=== PATIENT | female | born 1950 | race Caucasian/White ===

== ENCOUNTER 2024-10-19 13:36 | Outpatient (CLI) | payer MEDICARE, SELFPAY ==
--- NOTE | ~2024-10-19 | MR_ITS ---
MRI of the brain Clinical History: Bilateral hearing loss Technique: Axial and sagittal T1-weighted images were acquired. These were followed by axial T2-weigh cesar, diffusion weighted, gradient, and FLAIR images. Thin cut coronal and axial T1-weighted imaging w as performed through the internal auditory canals. Following intravenous administration of 17 cc Mult iHance gadolinium, T1-weighted fat-sat imaging was performed through the brain in the axial and coron al planes. Thin cut T1-weighted postcontrast imaging was performed through the internal auditory nancy ls in the axial and coronal planes. Findings: There is no acute infarct, internal hemorrhage or mass lesion. There is moderate chronic mi crovascular ischemic change throughout the periventricular white matter bilaterally. Ventricles and subarachnoid spaces are unremarkable. Orbits are unremarkable. Paranasal sinuses and m astoid air cells are clear. Major intracranial flow voids are intact. Sagittal midline structures are intact. No mass lesion seen at the internal auditory canals or CP angle regions. No abnormal postcontrast enhancement identified. IMPRESSION: No acute infarct, intracranial hemorrhage, or mass lesion. Moderate chronic microvascular ischemic change in the periventricular white matter bilaterally. Reviewed, dictated and finalized at location . IMPRESSION: No acute infarct, intracranial hemorrhage, or mass lesion. Moderate chronic microvascular ischemic change in the periventricular white mat ter bilaterally.
== END 2024-10-19 13:37 | disposition home or self-care (01) ==
PROVIDERS: PCP Internal Medicine; Visit Provider Nurse Practitioner Family
DX: I67.82 Cerebral ischemia (principal); H91.93 Unspecified hearing loss, bilateral
CPT/HCPCS: 70553; A9577

== ENCOUNTER 2024-12-12 01:27 | Day surgery (SDC) | payer MEDICARE, SELFPAY ==
--- NOTE | 2024-12-05 14:43 | PC.NURSE ---
Report to the Outpatient Waiting Room, entrance under the green pavilion located off [facility], at time __9 AM on date _12/12/24 . Planned Procedure Time: _11 AM .? Time changes happen often and if your time is changed the preop area will call you the afternoon before. - You and your visitor will be asked to self-screen and do not enter if you have any COVID symptoms. Please call surgeon if you need to reschedule. - A mask is optional within the hospital at this time. Patients may have clear liquids (water, carbonated beverages, clear teas, apple juice) until 3 hours prior to surgery( 8AM) with a maximum of 20 ounces. - No food from midnight until time of surgery and no smoking, or chewing tobacco (or any form of nicotine). No chewing gum, candy or mints. - Take only the following medications with a SIP of water on the morning of surgery: __LEVOTHYROXINE,EYE DROPS DO NOT STOP ANY OF YOUR OTHER PRESCRIPTION MEDICATIONS PRIOR TO SURGERY EXCEPT THE FOLLOWING Hold all vitamins and supplements for 3 days per anesthesiologist.LAST DOSE 12/08/24 Medications to discontinue per physician ___ASPIRIN AND MELOXICAM PER DR TUCKER Please no make-up, nail croatian, hairspray, perfume, deodorant, or body powder the day of surgery.? No jewelry (including any body piercings) or valuables the day of surgery, leave them at home.? Please take a shower or bath the night before, or the morning of, surgery with an antibacterial soap.? Wear comfortable, loose fitting clothing.? Children are encouraged to wear pajamas. - Jewelry must be removed prior to entering the operating room.? Rings and piercings that are not removed may be cut off. - The hospital will not accept responsibility for valuables.? - Please leave all valuables, including medications, at home the day of surgery. If you are going home after surgery, a licensed cpr ambulance driver must drive you home.? - NO public transportation without another adult if you receive anesthesia. - We recommend that an adult stay with you for 24 hours following discharge. - We also recommend that you do not drive, make important decision, drink alcoholic beverages, or take any drugs that were not prescribed by your health care provider for at least 24 hours after your discharge time. For Pediatric surgeries, we recommend two adults accompany the child home. Follow any additional instructions given to you from your surgeon. Telephone instructions given to _PATIENT and asked if any additional questions and then verbalized understanding. Patient advised to call surgeon office or pre surgery nurse liaison [phone] if any additional questions.
[2024-12-05 15:02] VITALS: BMI 29.7
[2024-12-12 10:05] VITALS: BP 137/71; PULSE 72; RESP 16; TEMP 36.2; O2SAT 98
[2024-12-12] MEDS: ACETAMINOPHEN 500 MG TABLET 1000 MG PO (10:05)
--- NOTE | 2024-12-12 10:14 | WPDANESEPPF ---
Anes - Initial Pre Proc Eval Procedure: Operation Date: 12/12/24 11:00 Proposed Procedures p Hysteroscopy, Dilation and Curettage - Tomas Armstrong MD Date/Time: 12/12/24 10:14 Surgeon: Tomas Armstrong MD Pre Op Diagnosis: lesion of endometrium Patient Data Age: 74 Gender: F Height: 1.7 m Weight: 86.2 kg Allergies Allergy/AdvReac Type Severity Reaction Status Date / Time atenolol Allergy Severe THROAT Verified 12/05/24 14:43 SWELLING/SOB amitriptyline Allergy Intermediate HYPER Verified 12/05/24 14:43 levofloxacin Allergy Intermediate SOB-THROAT Verified 12/05/24 14:43 SWELLS Home Medications ?Medication ?Instructions ?Recorded ?Confirmed ?Type apixaban 2.5 mg tablet (Eliquis) 2.5 mg PO BID 05/04/24 12/05/24 History ascorbate calcium (vitamin C) 500 500 mg PO DAILY 05/04/24 12/05/24 History mg tablet atorvastatin 10 mg tablet (Lipitor) 10 mg PO DAILY 05/04/24 12/05/24 History calcium 600 mg (as carbonate)-vit 1 tablet PO DAILY 05/04/24 12/05/24 History D3 1,000 unit-vitamin K2 90 mcg tab cholecalciferol (vitamin D3) 25 25 mcg PO DAILY 05/04/24 12/05/24 History mcg (1,000 unit) capsule fexofenadine 60 mg tablet (Faye 60 mg PO Q24H 05/04/24 12/05/24 History Allergy) fluticasone propionate 50 1 inh inhalation Q12H 05/04/24 12/05/24 History mcg/actuation blister powder for inhalation levothyroxine 50 mcg capsule 50 mcg PO DAILY 05/04/24 12/05/24 History meloxicam 7.5 mg tablet 7.5 mg PO DAILY PRN pain 05/04/24 12/05/24 History olopatadine 0.2 % eye drops 1 drp EACH EYE BID 05/04/24 12/05/24 History omega-3 fatty acids 1,000 mg 1,000 mg PO DAILY 05/04/24 12/05/24 History capsule ([place]-3) vitamin E succinate 67 mg (100 67 mg PO DAILY 05/04/24 12/05/24 History unit) tablet aspirin 81 mg capsule 81 mg PO HS 12/05/24 12/05/24 History peg 400-propylene glycol (PF) 0.4 1 drp EACH EYE DAILY PRN dry eye(s) 12/05/24 12/05/24 History %-0.3 % eye drops in a dropperette (Systane Ultra (PF)) Patient hx anesthesia problems: none Family hx anesthesia problems: none Results Review: All pre-operative results and documents have been reviewed as part of the pre-operative evaluation. PMFSH Past Medical History Medical History (Updated 12/11/24 @ 13:56 by Edilberto Little DO) Hypothyroidism Asthma Surgical History Surgical History (Updated 05/05/24 @ 10:24 by Amaury Phillips MD) History of surgical amputation of finger History of cholecystectomy History of ear surgery History of knee surgery LT Family History Family History (Updated 05/04/24 @ 09:31 by Rosi Nash CMA) Grandparent Cerebrovascular accident Social History Social History (Updated 05/04/24 @ 09:31 by Rosi Nash [facility]) Smoking status: Never smoker Alcohol intake: never Substance use: never Do You Feel Safe in your Home?: Yes Lack of Transportation: No Lack of Food: Never True Current Housing: I Have Housing Concerned About Future Housing: No Difficulty Paying Gas/Electric Bills: No Difficulty Paying for Meds: No Currently Unemployed: No Education: Associate Degree Difficulty w/ Childcare or Family Care: No Living arrangements: with family Spiritual care concerns: No Anes - Eval Final PreProcedure Day of Procedure 12/12/24 10:14 Patient weight: overweight Heart: regular rate and rhythm Lungs: clear to auscultation Airway: Mallampati scale class II Neurological: alert and oriented Last oral intake: >/= 8 hours ASA classification: II Emergent: no Anesthetic plan: proceed Anesthesia type and monitoring: general GIVS and standard monitoring Results Review: All pre-operative results and documents have been reviewed as part of the pre-operative evaluation. Informed Consent: The patient's anesthetic plan and its attendant risks and benefits were discussed with the patient/family/POA. Questions were solicited and answers provided to the satisfaction of the patient/family/POA.
[2024-12-12] MEDS: LACTATED RINGERS 1,000 ML 30 ML IV CONT (11:00)
--- NOTE | 2024-12-12 11:17 | WPDHPUPDATE1 ---
History and Physical Update Update Date/Time: 12/12/24 11:17 History and Physical has been reviewed, including an updated exam of the patient. There are NO changes in the patient's condition. Risks, benefits, and alternatives have been discussed and questions answered. Patient agrees to proceed with procedure.
--- NOTE | 2024-12-12 11:48 | S_PTH ---
PATIENT: Courtney Pierre LOC: [facility] U#:[id number] AGE/SX: 74/F ROOM: RE12/12/[address]: Tomas Armstrong MD : 1950 BED: DIS: 12/12/2024 SPEC #: [id number] RECD: 12/12/24 13:12 STATUS: BHAVANI REGreta #: [id number] JUANITO: 12/12/24 11:[address]: Tomas Armstrong DEPT: [facility] Surgical RECD BY: Farnaz Lubin ENTERED: 12/12/24 13:12 SP TYPE: Surgical OTHR DR: Sriram Mixon, Tissues: A - Endometrial Curettings Procedures: Hematoxylin and Eosin Stain Gross and Microscopic Level 4
[2024-12-12 12:01] VITALS: BP 126/63; PULSE 64; RESP 20
--- NOTE | 2024-12-12 12:09 | W.PM.PROC2 ---
Procedure Note - Detailed Date of Procedure 12/12/24 Pre-op Diagnosis lesion of endometrium Post-op Diagnosis Same Procedure Performed Hysteroscopy D&C, resection of endometrial lesion Surgeon Tomas Armstrong MD Anesthesia MAC Indications abnormal uterine bleeding Findings Midline, anterior, fundal endometrial lesion. It was resected with the rotational blade. Description of Procedure the patient was taken the operating room. She was prepped and draped in the dorsal lithotomy position after induction of mac anesthesia. A speculum was placed in the vagina. The cervix was grasped with a tenaculum. The cervix was dilated about 1 cm. The hysteroscope was inserted. The intrauterine cavity and endocervix were evaluated. Hysteroscope was withdrawn. A medium-size curette was used to curettage all the surfaces were within the endometrial cavity. the sample was collected on Telfa and sent to pathology. The hysteroscope was reinserted and the above findings were noted. Rotational blade inserted and the lesion was resected at the midline of the fundus. Patient tolerated the procedure well. The speculum and tenaculum were removed. She was taken recovery room in stable condition. Sponge lap and needle counts were correct x2. Estimated Blood Loss 40 Drains No Packing No Pathology Yes Complications No immediate complications Condition Stable Disposition PACU
[2024-12-12 12:30] VITALS: BP 136/64; PULSE 66; RESP 20
[2024-12-12 13:00] VITALS: BP 154/63; PULSE 57; RESP 20
--- NOTE | 2024-12-12 13:30 | SUR.PHASEII ---
1310 - pt ready for discharge, waiting for ride.
== END 2024-12-12 14:08 | disposition home or self-care (01) ==
PROVIDERS: PCP Internal Medicine; Visit Provider Obstetrics & Gynecology
PROC: 0U5B8ZZ Destruction of Endometrium, Via Natural or Artificial Opening Endoscopic (ICD-10-PCS; CPT 58563; principal; 2024-12-12 11:00)
DX: N85.8 Other specified noninflammatory disorders of uterus (principal)
CPT/HCPCS: 58558; 88305; A9270; J2003; J2704; J7120